=== PATIENT | female | born 1965 | race Caucasian/White ===

== ENCOUNTER 2018-10-03 08:51 | Day surgery (SDC) | payer OTHER ==
[~2018-10-03] VITALS: Ht 154.9 cm; Wt 76.7 kg
[~2018-10-03 08:51] MED LIST: HYDR-3498 PO; LORA10CA PO; OMEP20TA42 PO; [UNRECOGNIZED DRUG - OTHER]
[2018-10-03 09:38] VITALS: Ht 154.9 cm; Wt 76.7 kg
[2018-10-03 09:45] VITALS: BP 110/58; PULSE 69; RESP 16
[2018-10-03] MEDS ORDERED: METAMUCIL (09:45)
[2018-10-03] MEDS ORDERED: VITAMIN D (09:45)
[2018-10-03] MEDS ORDERED: MIDAZOLAM 1 MG/ML 2 ML INJ ONE (10:19)
[2018-10-03] MEDS ORDERED: PROPOFOL 40 ML ONE (10:19)
[2018-10-03] MEDS ORDERED: LIDOCAINE 2% JELLY 5 ML ONE (10:19)
--- NOTE | 2018-10-03 11:01 | PREAC ---
Date/Time of Note Date/Time of Note DATE: 10/03/18 TIME: 0950 Anesthesia Eval and Record Evaluation Time Pre-Procedure Interview DATE: 10/03/18 TIME: 10:57 Age 53 Sex female NPO: 8 hrs Preoperative diagnosis hx of colon polyp Planned procedure EGD Conoscopy Past Medical History Past Medical History: Includes Endo: Hyperthyroid Surgery & Anesthesia Issues No known issue Meds Anticoagulation: No Beta Shyann within 24 hr: No Reason Beta Shyann not given: Other Reported Medications [Metamucil] No Conflict Check 10/03/18 [Vitamin D] No Conflict Check 10/03/18 Omeprazole (Omeprazole) 20 Mg Tablet.dr, 20 MG PO DAILY 03/10/12 Discontinued Reported Medications Loratadine* (Claritin*) 10 Mg Capsule, 10 MG PO DAILY, CAP 06/10/15 [Hot Flash Med] No Conflict Check, TID 03/10/12 Discontinued Scripts Hydrocodone Bit/Acetaminophen (Anexsia 5-325 Mg Tablet) 1 Tab Tab, 1 TAB PO Q6H PRN for PAIN LEVEL 6-10, #30 TAB Prov:BRITTON MEEHAN Y 06/11/15 Meds reviewed: Yes Allergies Coded Allergies: No Known Drug Allergies (Verified Allergy, Unknown, 06/09/15) Allergies Reviewed: Yes Labs/Studies Labs Reviewed: Reviewed by anesthesiologist test: Negative Pre-procedure Exam Last vitals Vital Signs Date Temp Pulse Resp B/P (MAP) Pulse Ox O2 O2 Flow FiO2 Time Delivery Rate 10/03/18 98.1 69 16 110/58 97 Room Air 09:45 (75) Airway: Adequate mouth opening Mallampati: Mallampati II Teeth: Normal Lung: Normal Heart: Normal ASA Physical Status ASA physical status: 3 Emergency: None Planned Anesthetic General/MAC: MAC Pre-operative Attestations Prior to commencing anesthesia and surgery, the patient was re-evaluated, there was verification of: *The patient's identity *The results of appropriate recent lab work and preoperative vital signs *The above evaluation not changing prior to induction *Anesthetic plan, risk benefits, alternative and complications discussed with patient/family; questions answered; patient/family understands, accepts and wishes to proceed. RANDY ALVARADO MD October 03, 2018 11:01
--- NOTE | 2018-10-03 11:02 | PAC ---
Date/Time of Note Date/Time of Note DATE: 10/03/18 TIME: 11:02 Post-Anesthesia Notes Post-Anesthesia Note Last documented vital signs Vital Signs Date Temp Pulse Resp B/P (MAP) Pulse Ox O2 O2 Flow FiO2 Time Delivery Rate 10/03/18 98.1 69 16 110/58 97 Room Air 09:45 (75) Activity: WNL Respiratory function: WNL Cardiovascular function: WNL Mental status: Baseline Pain reasonably controlled: Yes Hydration appropriate: Yes Nausea/Vomiting absent: Yes RANDY ALVARADO MD October 03, 2018 11:02
[2018-10-03 11:04] VITALS: BP 109/56; PULSE 72; RESP 20
[2018-10-03 11:09] VITALS: BP 113/62; PULSE 68; RESP 20
== END 2018-10-03 15:55 | disposition home or self-care (01) ==
LOC: GIL 08:51
PROVIDERS: ATTEND Internal Medicine Gastroenterology
DX: K55.20 Angiodysplasia of colon without hemorrhage (principal); K29.50 Unspecified chronic gastritis without bleeding; K20.8 Other esophagitis; Z86.010 Personal history of colon polyps
CPT/HCPCS: 43239; 45378; 88305; 88312; J2250; Z7610